=== PATIENT | male | born 1990 | race Caucasian/White ===

== ENCOUNTER 2021-06-03 16:38 | Emergency (ER) | payer OTHER ==
[~2021-06-03] VITALS: Ht 167.6 cm; Wt 90.9 kg
[2021-06-03 17:06] VITALS: BP 130/76
[2021-06-03 17:31] LABS: COVID AG,FIA SOURCE NASOPHARYNGEAL
== END 2021-06-03 18:46 | disposition home or self-care (01) ==
LOC: EMS 16:45
DX: U07.1 COVID-19 (principal)
CPT/HCPCS: 99283